=== PATIENT | male | born 1940 | race Caucasian/White ===

== ENCOUNTER 2017-11-15 10:25 | Day surgery (SDC) | payer MEDICARE ==
[~2017-11-15] VITALS: Ht 203.2 cm; Wt 115.7 kg
[2017-11-15] MEDS ORDERED: ULTRAM50 M1 PO (10:53)
[2017-11-15] MEDS ORDERED: SIMVASTATIN10 MG PO (10:53)
[2017-11-15] MEDS ORDERED: ETODOLAC400 MG PO (10:53)
[2017-11-15] MEDS ORDERED: ADVAIR DISK1 INH (10:53)
[2017-11-15] MEDS ORDERED: PERCOCET 10/31 COMBO PO (16:37)
[2017-11-15 17:15] VITALS: BP 163/71
== END 2017-11-15 17:40 | disposition home or self-care (01) ==
LOC: ORM 10:25
PROVIDERS: ATTEND Orthopaedic Surgery
PROC: 0LMM0ZZ Reattachment of Left Upper Leg Tendon, Open Approach (ICD-10-PCS; principal; 2017-11-15)
DX: S76.112A Strain of left quadriceps muscle, fascia and tendon, initial encounter (principal); M17.12 Unilateral primary osteoarthritis, left knee; W19.XXXA Unspecified fall, initial encounter